=== PATIENT | female | born 1940 ===

== ENCOUNTER → 2017-03-20 | Outpatient (CLI) | payer MEDICARE ==
[2017-03-20 14:32] LABS: CALCIUM 8.6 mg/dL (8.5-10.1); CREATININE 1.5 mg/dL (0.6-1.0); GFR 33.9
== END | disposition home or self-care (01) ==
LOC: SPEC 14:05
PROVIDERS: ATTEND Family Medicine
DX: E11.9 Type 2 diabetes mellitus without complications (principal); A41.9 Sepsis, unspecified organism
CPT/HCPCS: 36415; 80048